=== PATIENT | male | born 1945 | race Caucasian/White ===

== ENCOUNTER 2020-03-17 10:35 | Day surgery (SDC) | payer MEDICARE, OTHER ==
[~2020-03-17] VITALS: Ht 172.7 cm; Wt 93.1 kg
[2020-03-17] VITALS (10 sets, daily range): BP systolic 101–133; BP diastolic 65–79; PULSE 59–71; TEMP 98.5
[2020-03-17] MEDS ORDERED: COZAAR 50MG50 MG/TAB PO (10:57)
[2020-03-17] MEDS ORDERED: HCTZ12.5TAB PO (11:00)
[2020-03-17] MEDS ORDERED: LIPITOR 10MG10 MG PO (11:01)
[2020-03-17] MEDS ORDERED: VITAMIN B12 781 TAB PO (11:02)
[2020-03-17] MEDS ORDERED: OMEGA-3 1000 MG1 CAP PO (11:03)
[2020-03-17] MEDS ORDERED: MULTI VITAMINS1 TAB PO (11:05)
[2020-03-17] MEDS ORDERED: ASPI325T6 PO (11:05)
[2020-03-17 11:13] LABS: HEMATOCRIT 45.6 % (42.0-52.0); HEMOGLOBIN 14.8 g/dl (13.5-18.0); MEAN CELL VOLUME 90 fl (80.0-100.0); MEAN CORPUSCULAR HEMOGLOBIN 29 pg (27.0-31.0); MEAN CORPUSCULAR HGB CONC 33 g/dl (33.0-37.0); MEAN PLATELET VOLUME 11.3 fl (7.4-10.4); PLATELET COUNT 173 K/mm3 (130-400); RED BLOOD COUNT 5.09 M/mm3 (4.20-5.60); REDCELL DISTRIBUTION WIDTH-CV 13.7 % (11.5-14.5)
[2020-03-17 11:15] LABS: PROTHROMBIN TIME 11.6 SECONDS (9.7-12.8)
[2020-03-17 11:17] LABS: CALCIUM 9.4 mg/dL (8.4-10.2); CREATININE, serum 0.94 (0.66-1.25); POTASSIUM 4.1 mmol/L (3.4-5.0)
[2020-03-17 11:18] LABS: PARTIAL THROMBOPLASTIN TIME 30.3 SECONDS (26.0-37.0)
--- NOTE | 2020-03-17 12:40 | NUR ---
SEE MEREMONIKA FOR ALL MEDICATION ADMINISTRATION TIMES AND INTRA AND POST SEDATION
--- NOTE | 2020-03-17 12:57 | NUR ---
Report from Amena MADRIGAL. Transferred from [facility] by bed. Right wrist Tband with 14 cc air in band CD&I, good pulses and cap refill < 3 secs. VSS
[2020-03-17] MEDS ORDERED: LIPITOR20 MG PO (14:58)
--- NOTE | 2020-03-17 15:42 | NUR ---
Right Tband deflated of 14 cc air and pressure dressing applied. INT discontinued intact.
--- NOTE | 2020-03-17 15:55 | NUR ---
Discharge instructions given and pt transferred to private car by marco antonio
== END 2020-03-17 15:55 | disposition home or self-care (01) ==
LOC: COL.CAR 10:35
PROVIDERS: Internal Medicine Cardiovascular Disease
DX: I48.0 Paroxysmal atrial fibrillation (principal); I25.10 Atherosclerotic heart disease of native coronary artery without angina pectoris; R94.39 Abnormal result of other cardiovascular function study; I10 Essential (primary) hypertension; E78.2 Mixed hyperlipidemia; Z79.82 Long term (current) use of aspirin; Z87.891 Personal history of nicotine dependence
CPT/HCPCS: J1644; J2250; J3010